=== PATIENT | female | born 1935 | race African-American/Black ===

== ENCOUNTER 2017-05-26 18:53 | Emergency (ER) | payer OTHER ==
[~2017-05-26] VITALS: Ht 154.9 cm; Wt 68.5 kg
--- NOTE | ~2017-05-26 | EKG ---
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
[~2017-05-26 18:53] MED LIST: AMBIEN 5 MG TABL5 M1 PO; ASPIRIN325 PO; CARVEDILOL12.5 MG PO; COLACE100 MG PO; COREG25 MG PO; CRESTOR10 MG PO; DUONEB 2.5-0.5 M3 ML INH; ENOXAPARIN30 MG/0.1 SUBQ; LISINOPRIL20 MG PO; NORVASC10 MG PO; PLAVIX 75 MG TA75 M1 PO; TYLENOL325 MG PO; XANAX 0.25 MG0.25 MG PO
[2017-05-26] MEDS ORDERED: NORVASC10 MG PO (19:16)
[2017-05-26] MEDS ORDERED: BENAZEPRIL HCL40 MG PO (19:17)
[2017-05-26] MEDS ORDERED: VITAMIN D1000 UNI1 PO (19:19)
[2017-05-26 21:53] VITALS: BP 158/81
== END 2017-05-26 21:54 | disposition home or self-care (01) ==
LOC: ER 18:53
DX: M25.512 Pain in left shoulder (principal); I10 Essential (primary) hypertension; E78.00 Pure hypercholesterolemia, unspecified; I25.2 Old myocardial infarction; Z90.49 Acquired absence of other specified parts of digestive tract

== ENCOUNTER 2018-11-25 20:53 | Inpatient (IN) | payer OTHER ==
[~2018-11-25] VITALS: Ht 154.9 cm; Wt 65.8 kg
[2018-11-25 20:53] VITALS: BP 134/77
[~2018-11-25 20:53] MED LIST changes: +BENAZEPRIL HCL40 MG PO; +VITAMIN D1000 UNI1 PO
[2018-11-25 21:29] LABS: URINE BILIRUBIN NEGATIVE (Negative); URINE BLOOD NEGATIVE (Negative); URINE CLARITY CLEAR; URINE COLOR YELLOW; URINE GLUCOSE-RANDOM* NEGATIVE (Negative); URINE KETONES NEGATIVE (Negative); URINE NITRITE-REFLEX NEGATIVE (Negative); URINE PROTEIN (DIPSTICK) TRACE (Negative); URINE SPECIFIC GRAVITY <= 1.005 (1.005-1.035)
[2018-11-25 21:40] LABS: URINE LEUKOCYTES-REFLEX 2+ (Negative)
[2018-11-25 21:44] LABS: BASOPHILS 0.9 % (0.0-2.0); EOSINOPHILS 1.2 % (0.0-3.0); HEMATOCRIT 42.6 % (37.0-47.0); LYMPHOCYTES 14.2 % (24.0-44.0); MCH 26.3 pg (26.0-34.0); MCHC 32.8 g/dL (28.0-37.0); MCV 80.1 fL (80.0-100.0); MONOCYTES 4.4 % (1.0-8.0); PLATELET COUNT 257 thou/uL (150-400); POLYS 79.3 % (36.0-66.0); RBC 5.33 mil/uL (4.20-5.00); RDW 14.4 % (10.5-14.5); WBC 6.3 thou/uL (4.0-11.0)
[2018-11-25 21:53] LABS: ANION GAP 17 mmol/L (7-16); BUN 23 mg/dL (7-18); CALCIUM 9.9 mg/dL (8.5-10.1); CHLORIDE 99 mmol/L (98-107); CO2 21 mmol/L (21-32); CREATININE 1.6 mg/dL (0.6-1.0); GLUCOSE 118 mg/dL (74-106); POTASSIUM 4.2 mmol/L (3.5-5.1); SODIUM 137 mmol/L (136-145)
[2018-11-25 21:56] LABS: MUCUS 0-3 Light strn/LPF (None Seen); SQUAMOUS >10 Many /LPF (0-3)
[2018-11-25 21:57] LABS: BACTERIA-REFLEX 1-9 Few /HPF (None Seen); COARSE GRANULAR CASTS 4-10 Moderate /LPF (None Seen); CRYSTALS None Seen /LPF (None Seen); URINE RBC 0-2 Rare /HPF (0-2); URINE WBC-REFLEX 6-15 Few /HPF (0-5)
[2018-11-25 22:03] LABS: ALBUMIN 4.4 g/dL (3.4-5.0); LIPASE 235 U/L (73-393); SGOT 20 U/L (15-37); SGPT 10 U/L (30-65); TOTAL BILIRUBIN 0.6 mg/dL (<0.1-1.0); TOTAL PROTEIN 8.6 g/dL (6.4-8.2); TROPONIN-I <0.06 ng/mL (<0.06)
[2018-11-25 23:16] LABS: URINE BILIRUBIN NEGATIVE (Negative); URINE BLOOD NEGATIVE (Negative); URINE CLARITY CLEAR; URINE COLOR YELLOW; URINE GLUCOSE-RANDOM* NEGATIVE (Negative); URINE KETONES NEGATIVE (Negative); URINE LEUKOCYTES-REFLEX NEGATIVE (Negative); URINE NITRITE-REFLEX NEGATIVE (Negative); URINE PROTEIN (DIPSTICK) TRACE (Negative); URINE SPECIFIC GRAVITY <= 1.005 (1.005-1.035); URINE UROBILINOGEN 0.2 E.U./dl (0.2-1.0)
[2018-11-25 23:46] VITALS: BP 136/62
--- NOTE | 2018-11-25 23:54 | NUR ---
CALLED REPORT TO EDWIGE TOVAR
[2018-11-26 00:11] VITALS: BP 147/59
[2018-11-26 00:14] VITALS: BP 138/60
--- NOTE | 2018-11-26 01:17 | NUR ---
PATIENT ARRIVED VIA CART FROM ED AND WALKED TO THE BED WITH SBA. ALERT AND ORIENTED X4. DAUGHTER STAYING WITH PATIENT AND IS HER DPOA (LEATHA). NO SKIN ISSUES. ABDOMEN DISTENDED. DENIES PAIN. NO EMESIS OR NAUSEA AT THIS TIME. IVF INFUSING PER ORDER. PATIENT IS NPO. DAUGHTER WILL BRING IN MEDICATIONS IN AM FOR DOCUMENTATION. RESTING QUIETLY. WILL MONITOR.
[2018-11-26 05:48] LABS: CALCIUM 9.3 mg/dL (8.5-10.1); CREATININE 1.4 mg/dL (0.6-1.0)
[2018-11-26 07:13] LABS: HEMOGLOBIN 12.9 gm/dL (12.0-15.0); MCHC 32.3 g/dL (28.0-37.0); MCV 80.7 fL (80.0-100.0); RBC 4.95 mil/uL (4.20-5.00); RDW 14.7 % (10.5-14.5); WBC 7.2 thou/uL (4.0-11.0)
[2018-11-26 08:00] VITALS: BP 130/67
--- NOTE | 2018-11-26 08:01 | EKG ---
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: LOS : 1935 Requested By: Charlie Jernigan Order Number: [id number] MD: Royce Carrero Measurements Intervals [place] Rate: 70 P: 23 IL: 195 QRS: 27 QRSD: 92 T: 47 QT: 414 QTc: 447 Interpretive Statements Sinus rhythm Borderline low voltage, extremity leads Probable anteroseptal infarct, old Baseline wander in lead(s) V3 Compared to ECG 05/26/2017 19:03:37 Myocardial infarct finding now present Poor R-wave progression no longer present Electronically Signed On 11-26-2018 8:01:34 CDT by Royce Carrero [email or web address] <ELECTRONICALLY SIGNED> By: Royce Carrero MD 11/26/18800 18 18 Royce Carrero MD /EPI
--- NOTE | 2018-11-26 16:06 | NUR ---
PT ADMITTED RELATED TO SMALL BOWEL OBSTRUCTION. CM REVIEWED CHART AND SPOKE WITH CARE TEAM. CM MET WITH PT AND HER DTR/DPOA AT BEDSIDE THIS DAY. PT IS A&O X4. CM ROLE INTRODUCED. PT'S DTR INDICATED THAT PT RESIDES IN A HOUSE WITH HER WITH 6 STEPS TO ENTER AND 5 STEPS TO BEDROOM, AND 6 STEPS TO UTILITY ROOM. 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 DTR INDICATED THAT PT HAD BEEN TO BOP IN THE PAST FOR A SKILLED REHAB STAY. SHE INDICATED THAT SHE HOPES THAT PT WILL BE ABLE TO RETURN HOME ONCE MEDICALLY STABLE. CM TO FOLLOW INDICATED WITH DC PLANNING.
[2018-11-26 17:10] VITALS: BP 131/58
[2018-11-26 19:20] VITALS: BP 133/64
--- NOTE | 2018-11-26 20:56 | NUR ---
PATIENT ALERT AND ORIENTED WITH FAMILY AT BEDSIDE. PATIENT TO SURGERY FOR LYSIS OF ADHESIONS AND SMALL BOWEL RESECTION. FAMILY AT BEDSIDE AFTER SURGERY. PATIENT PULLED AT NG TUBE AND CONTINUED TO NOT ATTEMPT TO PULL AT NG TUBE. APPLIED SOFT WRIST RESTRAINTS. LEONARDO, DAUGHTER AT BEDSIDE, AND SUPPORTED THE IDEA TO APPLY RESTRAINTS. APPROVED ORDER TO PLACE RESTRAINT. ABDOMINAL DRESSING DRY, CLEAN, INTACT AND PATIENT NOT HAVING ANY PAIN. NG TUBE TO LOW INTERMITTENT SUCTION.
[2018-11-26 23:46] VITALS: BP 127/64
[2018-11-27 03:16] VITALS: BP 139/70
--- NOTE | 2018-11-27 04:07 | NUR ---
ASSUMED CARE AROUND 1899. AXOX3. FAMILY AT BEDSIDE. PT ON BILATOERAL SOFT RESTRAINTS FOR ATTEMPTING TO REMOVE NGT. HOURLY ROUNDING REDENRED AND EDUCATED BOTH THE DTR AND THE PT ABOUT THE IMPORTANCE OF COMPLIANCE. DENIES ANY PAIN OR NAUSEA AT THIS TIME. DRAINAGE IN NGT NOTED BUT NONE IN SUCTION CUP SINCE 1899. NO S/S ACUTE DISTRESS NOTED OR REPORTED AT THIS TIME. WILL CONT TO MONITOR ANY CHANGES IN CONDITION.
[2018-11-27 07:52] LABS: HEMATOCRIT 39.7 % (37.0-47.0); HEMOGLOBIN 12.7 gm/dL (12.0-15.0); MCH 25.9 pg (26.0-34.0); MCHC 31.9 g/dL (28.0-37.0); MCV 81.1 fL (80.0-100.0); RBC 4.9 mil/uL (4.20-5.00); RDW 14.8 % (10.5-14.5); WBC 15.4 thou/uL (4.0-11.0)
[2018-11-27 08:05] LABS: ALBUMIN 2.7 g/dL (3.4-5.0); CALCIUM 8.8 mg/dL (8.5-10.1); CREATININE 1.7 mg/dL (0.6-1.0)
[2018-11-27 08:47] VITALS: BP 146/59
[2018-11-27 15:27] VITALS: BP 135/61
[2018-11-27 20:44] VITALS: BP 138/53
--- NOTE | 2018-11-28 05:02 | NUR ---
Pt. rested quietly at intervals during the night when checked on during frequent rounds. She denies any pain or nausea. Dressing to abdomen is dry and intact. Ngt tube is clamped. Bed alarm is on.
[2018-11-28 06:04] LABS: HEMATOCRIT 36.9 % (37.0-47.0); HEMOGLOBIN 11.6 gm/dL (12.0-15.0); MCH 25.6 pg (26.0-34.0); MCHC 31.4 g/dL (28.0-37.0); MCV 81.5 fL (80.0-100.0); RBC 4.52 mil/uL (4.20-5.00); RDW 14.7 % (10.5-14.5); WBC 14.5 thou/uL (4.0-11.0)
[2018-11-28 06:19] LABS: CALCIUM 8.5 mg/dL (8.5-10.1); CREATININE 1.3 mg/dL (0.6-1.0); MAGNESIUM 2.7 mg/dL (1.8-2.4); POTASSIUM 3.8 mmol/L (3.5-5.1)
[2018-11-28 08:38] VITALS: BP 135/57
--- NOTE | 2018-11-28 12:00 | NUR ---
SW reviewed chart and spoke with attending physician. Pt to have NG tube discontinued today. Therapy has discharged pt from their service. Plan is for pt to discharge home when medically stable. LELIA is following to assist as needed with discharge planning.
[2018-11-28] MEDS ORDERED: FENOFIBRATE160 MG PO (13:57)
[2018-11-28] MEDS ORDERED: CRESTOR10 MG PO (14:11)
[2018-11-28] MEDS ORDERED: CARVEDILOL12.5 MG PO (14:11)
[2018-11-28] MEDS ORDERED: NORVASC10 MG PO (14:12)
[2018-11-28 14:54] VITALS: BP 133/70
--- NOTE | 2018-11-28 18:48 | NUR ---
ASSESSMENT CHARTED - MEDS PER MAY - NO CO'S OF PAIN OR NAUSEA. TESSIE SIPS OF WATER AND ICE CHIPS, SEEN BY PHYS THERAPY AND AMBULATED IN THE HALLS HAS BEEN UP IN THE CHAIR FOR MOST OF THE DAY. NG TUBE REMOVED THIS AM - NO CO'S OF NAUSEA POST REMOVAL. IV FLUIDS CONT ODERED. NO CO'S AT THE PRESENT TIME.
[2018-11-28 19:23] VITALS: BP 147/68
[2018-11-29 04:00] VITALS: BP 143/70
[2018-11-29 05:44] LABS: HEMATOCRIT 37.9 % (37.0-47.0); HEMOGLOBIN 12.2 gm/dL (12.0-15.0); MCH 26.1 pg (26.0-34.0); MCHC 32.1 g/dL (28.0-37.0); MCV 81.3 fL (80.0-100.0); RBC 4.66 mil/uL (4.20-5.00); RDW 14.9 % (10.5-14.5); WBC 10.8 thou/uL (4.0-11.0)
[2018-11-29 06:08] LABS: CALCIUM 8.6 mg/dL (8.5-10.1); CREATININE 1.2 mg/dL (0.6-1.0); MAGNESIUM 1.9 mg/dL (1.8-2.4); POTASSIUM 3.6 mmol/L (3.5-5.1)
[2018-11-29 07:19] VITALS: BP 148/76
--- NOTE | 2018-11-29 08:04 | NUR ---
progress pt up with sba, ambulating in cyr with sba, bs positive denies flatus, felt like she was going to move her bowels but no results. tolerating sips and chips. incision to midline abdomen well approximated covered with surgical drsg. continue to monitor.
--- NOTE | 2018-11-29 11:07 | PATH ---
[facility] [place] [address] [place] [address] PATHOLOGY RPT PROCEDURE Name: BRENT JOY Room #: 463-P ADM IN M.R.#: [id number] Admission: 11/25/18 Date of : 31 Discharge: Report #: [id number] Path Case #: [id number] [facility] Accession Number: [id number] . 01 Material submitted: . PART A: small bowel - SEGMENT SMALL BOWEL PART B: ileum - ILEUM WITH MECKEL'S DIVERTICULUM . 01 Clinical history: . Mesenteric volvulus . 02 Diagnosis: A. Small bowel, segment small bowel, resection: - Marked transmural congestion with mild ischemic changes. - Serosa showing fibrous adhesions as well as congestion. - Margins of resection viable and unremarkable. - Negative for dysplasia or malignancy. . B. Small bowel, ileum with Meckel's diverticulum, resection: - 2.5 cm diverticular pouch present, clinically Meckel's diverticulum. - No heterotopic mucosa identified. - Markedly congested small bowel. - Serosa showing fibrous adhesions as well as congestion. - Margins of resection viable and unremarkable. - Negative for dysplasia or malignancy. . (IUV:mml; 11/28/2018) QLM 11/29/2018 1055 [facility] . 02 Electronically signed: . Michelle Whitaker MD, Pathologist NPI- [id number] . 01 Gross description: . A. The specimen is received in formalin, labeled "Brent Joy, segment of small bowel". Received is an unoriented looped segment of small bowel measuring 35.4 cm in length by 1.8 cm in diameter. The specimen is tied together at each end by a suture. The serosal surface is dusky pink-birmingham to birmingham-black in appearance. The attached mesenteric fat measures up to 3.8 cm in thickness. Opening the specimen reveals pink-coffman to pink-birmingham mucosa with normal architectural folds. No distinct nodules or lesions are noted grossly. Sectioning through the attached mesenteric fat reveals no readily identifiable lymph nodes. The specimen is submitted representatively as follows: . A1-A2 business office representative sections from each margin A3-A4 business office representative [place] [address] PATHOLOGY RPT PROCEDURE Name: BRENT JOY Room #: 463-P ADM IN M.R.#: [id number] Admission: 11/25/18 Date of : 31 Discharge: Report #: [id number] Path Case #: [id number] . B. The specimen is received in formalin, labeled "Brent Joy, ileum with Meckel's diverticulum". Received is a looped segment of bowel, with one stapled margin of resection, measuring 21.2 cm in length by up to 2.2 cm in diameter. There is a single stapled margin of resection. The serosal surface is pink-birmingham to red-brown in appearance. The mesenteric fat measures up to 2.8 cm in thickness. Opening the specimen reveals pink-coffman to pink-birmingham mucosa with normal rugal folds. A Meckel's diverticulum is noted approximately 2.5 cm from the closest stapled margin, measuring 1.8 cm. No distinct nodules or lesions are noted grossly. Sectioning through the attached mesenteric fat reveals no readily identifiable lymph nodes. The specimen is submitted representatively as follows: . B1-B2 business office representative sections from the margin from either side of the staple line B3-B4 business office representative sections through Meckel diverticulum B5-B6 business office representative cross-sections of mucosa. ([facility]; 11/27/2018) QA/[facility] 11/27/2018 [facility] Local . 02 Pathologist provided ICD-10: K63.89, Q43.0, K66.0 . 02 CPT . 328490, 370831 Specimen Comment: A courtesy copy of this report has been sent to Specimen Comment: [phone], , . Specimen Comment: Report sent to ,DR ESCOBAR,DR AMOS / DR ROGERS Performed at: [address], [place] [address] MD Farhat Silva MD Phone: [phone] Performed at: [address] [id number] MD Michelle Whitaker MD Phone: [phone]
--- NOTE | 2018-11-29 12:29 | NUR ---
SW reviewed chart and spoke with nursing and attending physician. Pt is slowly progressing towards goals for discharge. NG tube was removed yesterday. Pt to have KUB today and start on a diet. Plan is for pt to discharge home when medically stable. LELIA is following to assist as needed with discharge planning.
[2018-11-29 13:57] VITALS: BP 148/76
[2018-11-29 20:08] VITALS: BP 154/59
--- NOTE | 2018-11-29 20:42 | NUR ---
Assumed pt care this am, pt curremtly on NPO. nausea was noted but resolved with medication. Surgical dressing changed no signs of infections was noted. PPN started, all medications given with no issues. PT has a BM late in the afternoon as well informed the night nurse. FC removed, POC followed, pt denied any pain or discomfort.
[2018-11-30 05:44] LABS: HEMATOCRIT 39.6 % (37.0-47.0); HEMOGLOBIN 12.6 gm/dL (12.0-15.0); MCH 25.8 pg (26.0-34.0); MCHC 31.7 g/dL (28.0-37.0); MCV 81.5 fL (80.0-100.0); RBC 4.86 mil/uL (4.20-5.00); RDW 14.6 % (10.5-14.5); WBC 8.9 thou/uL (4.0-11.0)
[2018-11-30 06:16] LABS: CALCIUM 8.6 mg/dL (8.5-10.1); CREATININE 1.2 mg/dL (0.6-1.0); MAGNESIUM 1.7 mg/dL (1.8-2.4); POTASSIUM 3.4 mmol/L (3.5-5.1)
[2018-11-30 08:00] VITALS: BP 151/69
[2018-11-30 15:00] VITALS: BP 146/66
--- NOTE | 2018-11-30 16:16 | NUR ---
SW reviewed chart and spoke with nursing and attending physician. Pt is NPO. No weekend discharge planned. Plan is for pt to discharge home when medically stable. LELIA is following to assist as needed with discharge planning.
--- NOTE | 2018-11-30 19:45 | NUR ---
Assumed pt care this am, pt feels a bit "unwell" but no nausea or vomiting was noted. Magnesium and potassium replaced, IV abx given, no pain was noted nor verbalized. Pt had a bowel movement but was contaminated with urine thus sample was note sent, endorse to the night nurse for collection. Diet was changed to clear liquids and is tolerating well. Pt is able to void with no issues. POC followed, daughter is at the bedside. Potssium IV had to run slow due to the irritation of the IV site and as requested by the pt.
[2018-11-30 20:36] VITALS: BP 147/65
[2018-12-01] VITALS (8 sets, daily range): BP systolic 102–159; BP diastolic 63–73
[2018-12-01 05:28] LABS: HEMATOCRIT 38.9 % (37.0-47.0); HEMOGLOBIN 12.8 gm/dL (12.0-15.0); MCH 26.7 pg (26.0-34.0); MCHC 32.9 g/dL (28.0-37.0); MCV 81.2 fL (80.0-100.0); RBC 4.79 mil/uL (4.20-5.00); WBC 8.9 thou/uL (4.0-11.0)
[2018-12-01 06:03] LABS: CALCIUM 8.5 mg/dL (8.5-10.1); CREATININE 1.1 mg/dL (0.6-1.0); MAGNESIUM 2.4 mg/dL (1.8-2.4); POTASSIUM 3.7 mmol/L (3.5-5.1)
--- NOTE | 2018-12-01 07:50 | NUR ---
PROGRESS PT A/0 X4 UP WITH SBA AMBULATING TO BR GAIT STEADY. HAD 2 SMALL BM'S SENT TO LAB FOR CULTURE. PPN CONTINUES AT 80CC/HR INTERMITTENT IV ANTIBIOTICS ADMINISTERED ORDERED. DENIES NAUSEA AND NO VOMITING THIS SHIFT CONTINUE TO MONITOR.
--- NOTE | 2018-12-01 19:17 | NUR ---
Assumed pt care this am, vs were stable still on clear liquids and have been tolerating well. PPN on shagufta with iv abx. Daughter at the bed side. IV on the right wrist infiltrated ten removed. Pt requested to take a shower, pt sat on the visitors chair for a few minutes. While conversing with one of her daughters pt's slumpped over and lost conciousness for a few seconds. VS were initially (4pm) 88/45 , 152 hr, 100 O2 sat, 36.3 temp. Pt was having cold sweats but pt verbalized she was feeling warm and mentioned that she felt a hot flush on her face and her head earlier. Pt was laid back in bed put on trendlenberg position, Vs were 142/75, 98hr, 99 O2. Orthostatic bp taken , troponin and EKG done as per orders of Dr. Hoover. Pt had a second episode at 430pm. Advised the pt to stay in bed as of now. Informed house sup for pt to be on telemetry. Seen by Dr. Garcia, CT w/ contrast ordered. Pt is to transfer to 209. Ordered bolus of NS 1000 to run for 2 hours on going, PPN on hold to resume til further notice. Contrast started with the pt. POC followed, endorsed to the night nurse. Pt is to move to 209
--- NOTE | 2018-12-01 19:58 | NUR ---
PT TO CAT SCAN VIA BED VSS SEE FLOWSHEET. FINISHED 2 BOTTLES OF CONTRAST, DENIES DIZZINESS, CHEST PAIN SKIN WARM AND DRY, A/O X4 UP TO BSC WITH SBA SMALL STOOL 4 MG ZOFRAN GIVEN IVP AT 1955 FOR NAUSEA.
--- NOTE | 2018-12-01 20:08 | NUR ---
REPORT GIVEN TO RADHA TOVAR FROM CCU PT TO TRANSFER TO ROOM [address], INFORMED NURSE OF ORTHOSTASIS, CURRENT VSS, 4 MG OF ZOFRAN GIVEN. NORMAL SALINE BOLUS INITIATED, BUT PT SALINE LOCKED FOR CAT SCAN. FAMILY WITH PT TRANSPORTER TO ASSIST WITH TRANSFERRING PT'S IV AND PERSONAL BELONGINGS.
[2018-12-02 01:20] VITALS: BP 139/68
--- NOTE | 2018-12-02 02:32 | NUR ---
pt admitted to room 209 from 477 after syncopal episode witnessed by family hypotension, received po contrast and went to CT received 2 doses of nausea medication, and placed ng placement verified and connected to lis, lrg amount of green bile colored content suctioned to cnister, abdomen distended, pt states she feels much better, vss, tpn and fluids infusing, daughter at bedside offering support, will con't to monitor per ppoc. episode
[2018-12-02 04:45] VITALS: BP 147/75
[2018-12-02 08:07] LABS: HEMATOCRIT 38.3 % (37.0-47.0); HEMOGLOBIN 12.3 gm/dL (12.0-15.0); MCHC 32.2 g/dL (28.0-37.0); MCV 80.8 fL (80.0-100.0); RBC 4.75 mil/uL (4.20-5.00); RDW 15.1 % (10.5-14.5)
[2018-12-02 08:08] VITALS: BP 146/72
[2018-12-02 08:20] LABS: ALBUMIN 2.6 g/dL (3.4-5.0); CALCIUM 8.7 mg/dL (8.5-10.1); CREATININE 1.2 mg/dL (0.6-1.0); MAGNESIUM 2.1 mg/dL (1.8-2.4); PHOSPHORUS 3.5 mg/dL (2.5-4.9)
--- NOTE | 2018-12-02 12:26 | EKG ---
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
--- NOTE | 2018-12-02 16:33 | NUR ---
AM ASSESSMENT COMPLETED BY LORRIE TAMEZ. PT REMIANED NPO THIS SHIFT - NG TUBE IN PLACE WITH BROWN / BLOOD DRAINAGE - DOCTOR DALLAS AWARE - SURGEON IN TO SEE PATIENT EARLY THIS AM - ORDERED 2 VIEW KUB - PT TO XRAY VIA STRETCHER. PT WANTING TO USE THE RESTROOM - PT AMBULATED TO THE RESTROOM WITH NO DIIFICULTIES - ON RETRUN ASKED PATIENT IF SHE WOULD LIKE TO SIT IN THE CHAIR AND SHE STATED THAT SHE WOULD CHAIR PREPARED WITH BLANKET AND PATIENT SAT IN THE CHAIR. ONCE SEATED PT HEAD SLUMPED BACK AND SHE BECAME NON RESPONSIVE - STAFF EMEGERNCY ACTICATED AND PATIENT SOFTWARE TEST ANALYST LIFTED BACK TO BED - ATTEMPTED STERNAL RUB NO RESPONSE. PT WITH PULSE AT THIS TIME - DR MARCUM CALLED STAT AND CAME TO THE UNIT - @ 1150 BP 53/33 - HR 76 O2 SAT 94% BLOOD GLUCOSE 110. PT CONTINUE TO BE NONE RESPONSIVE - PULIPS NOT REACTIN TO LIGHT - CODE STROKE CALLED - CT NOTIFIIED OF NEED FOR STAT CT - ORDER PLACE - FLUID BOLUS STARTED - WHILE ATTEMPTING TO GET FURTHER VITALS IT NOTED THAT THE PATIENT WAS NO LONGER BREATHING. DR MARCUM AT THE BEDSIDE AND CODE BLUD WAS INITIATED. CRASH CART TO ROOM - PT PLACED ON ZOLL DEFIBRILATOR - MONITOR SHOWING PEA - FIRST COMPRESSIONS INITIATED AT 1208 - SEE CODE BLUE RECORD. CODE CALLED AT [address] MARCUM - DAUGHTER WAS PRESENT IN THE ROOM THROUGHOUT THE CODE. DR MARCUM SPOKE WIH DAUGHTER POST CODE - MIRACLEAGHTER NOTIFIED FAMILY IN REGARDS TO PATIENT PASSING. FAMILY UP TO SEE PATIENT. PT BELONGINGS TAKEN BY DAUGHTER AT THE TIME HE LEFT THE HOSPITAL - PAPER WORK HAS BEEN COMPLETED - FAMILY HAVE LEFT THE UNIT - PATIENT END OF LIFE CARE COMPLETED - SECURITY NOTIFED THAT PATIENT READY TO BE PICKED UP. FAMILY HAVE CHOSEN AMARA MIRAMONTES FOR END OF LIF CARE FOR THE PATIENT - PHONE # [phone].
== END 2018-12-02 12:28 | DRG 329 ==
LOC: ER 20:53 → EROBS 23:22 → 4W 23:22 → 4S 11-30 12:08 → 2N 12-01 21:26
PROVIDERS: Emergency Medicine; Hospitalist; Internal Medicine; Nurse Practitioner Family; Surgery; ADMIT Internal Medicine
PROC: 0DB80ZZ Excision of Small Intestine, Open Approach (ICD-10-PCS; principal; 2018-11-30)
PROC: 0DBB0ZZ Excision of Ileum, Open Approach (ICD-10-PCS; principal; 2018-11-30)
PROC: 0WJP4ZZ Inspection of Gastrointestinal Tract, Percutaneous Endoscopic Approach (ICD-10-PCS; principal; 2018-11-30)
DX: K55.9 Vascular disorder of intestine, unspecified (principal); K56.2 Volvulus; E43 Unspecified severe protein-calorie malnutrition; N17.9 Acute kidney failure, unspecified; K56.50 Intestinal adhesions [bands], unspecified as to partial versus complete obstruction; E78.00 Pure hypercholesterolemia, unspecified; M10.9 Gout, unspecified; E78.5 Hyperlipidemia, unspecified; N18.9 Chronic kidney disease, unspecified; E55.9 Vitamin D deficiency, unspecified; D72.829 Elevated white blood cell count, unspecified; I12.9 Hypertensive chronic kidney disease with stage 1 through stage 4 chronic kidney disease, or unspecified chronic kidney disease; K52.9 Noninfective gastroenteritis and colitis, unspecified; I25.10 Atherosclerotic heart disease of native coronary artery without angina pectoris; I25.2 Old myocardial infarction; Z90.49 Acquired absence of other specified parts of digestive tract; Z98.42 Cataract extraction status, left eye; Z95.5 Presence of coronary angioplasty implant and graft; Z79.82 Long term (current) use of aspirin; Z79.899 Other long term (current) drug therapy; Q43.0 Meckel's diverticulum (displaced) (hypertrophic); Z53.31 Laparoscopic surgical procedure converted to open procedure
CPT/HCPCS: 10040; 10081; 10102; 50010; 50093; 50101; 50249; 50386; 50455; 50525; 50555; 51412; 51435; 51708; 51712; 52265; 53307; 53310; 56524; 56525; 56528; 57092; 62110; 62900; 70005